=== PATIENT | female | born 1970 | race Caucasian/White ===

== ENCOUNTER 2021-09-14 07:24 | Emergency (ER) | payer BC ==
[2021-09-14] MEDS ORDERED: LIDOCAINE 1% W/EPI 1:100,000 MDV 50 ML VIAL ONE (08:12)
[2021-09-14] MEDS ORDERED: DOXYCYCLINE 100 MG CAP PO ONE (08:45)
[2021-09-14] MEDS ORDERED: MUPIROCIN 2% OINT 22GM TUBE TOP ONE (08:45)
[2021-09-14] MEDS ORDERED: HYDROCODONE/APAP 10/325 TAB ONE (08:45)
[2021-09-14] MEDS ORDERED: TETANUS & DIPHTHERIA TOX,ADULT 0.5 ML VIAL ONE (08:45)
--- NOTE | 2021-09-14 09:21 | RAD REPORT ---
EXAM DESCRIPTION: RAD - Ankle Left 3 View -09/14/2021 8:41 am CLINICAL HISTORY: Left ankle pain status post injury FINDINGS: No fracture or dislocation is seen.
--- NOTE | 2021-09-14 09:22 | RAD REPORT ---
EXAM DESCRIPTION: RAD - Foot Left 3 View - 09/14/2021 8:41 am CLINICAL HISTORY: Left Foot pain status post injury FINDINGS: No fracture or dislocation is seen.
--- NOTE | 2021-09-14 09:23 | RAD REPORT ---
EXAM DESCRIPTION: RAD - Knee Right 3 View - 09/14/2021 8:41 am CLINICAL HISTORY: Right knee pain status post injury FINDINGS: No fracture or dislocation is seen.
--- NOTE | 2021-09-14 09:24 | RAD REPORT ---
EXAM DESCRIPTION: RAD - Tib Fib Right - 09/14/2021 8:41 am CLINICAL HISTORY: Right leg pain FINDINGS: No fracture is seen
--- NOTE | 2021-09-14 10:18 | EDPHYS ---
Physician Documentation [facility] Name: Venita Alcala Age: 51 yrs Sex: Female : 1970 Arrival Date: 09/14/2021 Time: 07:28 Bed 24 Private MD: ED Physician Juice Monge HPI: 09/14 08:13 This 51 yrs old Female presents to ER via Ambulatory with complaints of Fall mariaelena Injury, Leg Injury, Foot Pain. 08:13 Details of fall: The patient fell from an upright position, while running. Onset: The mariaelena symptoms/episode began/occurred this morning. Associated injuries: The patient sustained left foot, right leg and left leg, decreased range of motion, hematoma, laceration. Severity of symptoms: At their worst the symptoms were mild, in the emergency department the symptoms are unchanged. The patient has not experienced similar symptoms in the past. Historical: - Allergies: 07:47 No Known Allergies; prince - Home Meds: 07:47 None [Active]; prince - PMHx: 07:47 None; prince - PSHx: 07:47 None; prince - Immunization history: Last tetanus immunization: unknown. - Social history:: Smoking status: Patient reports the use of cigarette tobacco products, smokes one-half pack cigarettes per day. ROS: 08:14 Constitutional: Negative for fever, chills, and weight loss, Eyes: Negative for injury, mariaelena pain, redness, and discharge, ENT: Negative for injury, pain, and discharge, Neck: Negative for injury, pain, and swelling, Cardiovascular: Negative for chest pain, palpitations, and edema, Respiratory: Negative for shortness of breath, cough, wheezing, and pleuritic chest pain, Abdomen/GI: Negative for abdominal pain, nausea, vomiting, diarrhea, and constipation, Back: Negative for injury and pain, : Negative for injury, bleeding, discharge, and swelling, Neuro: Negative for headache, weakness, numbness, tingling, and seizure, Psych: Negative for depression, anxiety, suicide ideation, homicidal ideation, and hallucinations, Allergy/Immunology: Negative for hives, rash, and allergies, Endocrine: Negative for neck swelling, polydipsia, polyuria, polyphagia, and marked weight changes, Hematologic/Lymphatic: Negative for swollen nodes, abnormal bleeding, and unusual bruising. 08:14 MS/extremity: Positive for laceration, pain, swelling, tenderness, of the left foot, right leg and left leg. Exam: 08:14 Constitutional: This is a well developed, well nourished patient who is awake, alert, mariaelena and in no acute distress. Head/Face: Normocephalic, atraumatic. Eyes: Pupils equal round and reactive to light, extra-ocular motions intact. Lids and lashes normal. Conjunctiva and sclera are non-icteric and not injected. Cornea within normal limits. Periorbital areas with no swelling, redness, or edema. ENT: Nares patent. No nasal discharge, no septal abnormalities noted. Tympanic membranes are normal and external auditory canals are clear. Oropharynx with no redness, swelling, or masses, exudates, or evidence of obstruction, uvula midline. Mucous membranes moist. Neck: Trachea midline, no thyromegaly or masses palpated, and no cervical lymphadenopathy. Supple, full range of motion without nuchal rigidity, or vertebral point tenderness. No Meningismus. Chest/axilla: Normal chest wall appearance and motion. Nontender with no deformity. No lesions are appreciated. Cardiovascular: Regular rate and rhythm with a normal S1 and S2. No gallops, murmurs, or rubs. Normal PMI, no JVD. No pulse deficits. Respiratory: Lungs have equal breath sounds bilaterally, clear to auscultation and percussion. No rales, rhonchi or wheezes noted. No increased work of breathing, no retractions or nasal flaring. Abdomen/GI: Soft, non-tender, with normal bowel sounds. No distension or tympany. No guarding or rebound. No evidence of tenderness throughout. Back: No spinal tenderness. No costovertebral tenderness. Full range of motion. Neuro: Awake and alert, GCS 15, oriented to person, place, time, and situation. Cranial nerves II-XII grossly intact. Motor strength 5/5 in all extremities. Sensory grossly intact. Cerebellar exam normal. Normal gait. Psych: Awake, alert, with orientation to person, place and time. Behavior, mood, and affect are within normal limits. 08:14 Skin: injury, avulsion(s), A moderate sized laceration(s), the wound is approximately 3.5 cm(s), with a depth of .5 cm(s), of the right leg. Vital Signs: 07:38 BP 136 / 81; Pulse 71; Resp 17; Temp 98.1(T); Pulse Ox 100% ; Weight 72.57 kg; Height 5 prince ft. 9 in. (175.26 cm); 07:38 Body Mass Index 23.63 (72.57 kg, 175.26 cm) prince Theresa Coma Score: 07:38 Eye Response: spontaneous(4). Verbal Response: oriented(5). Motor Response: obeys prince commands(6). Total: 15. Trauma Score (Adult): 07:38 Eye Response: spontaneous(1); Verbal Response: oriented(1); Motor Response: obeys prince commands(2); Systolic BP: > 89 mm Hg(4); Respiratory Rate: 10 to 29 per min(4); Theresa Score: 15; Trauma Score: 12 Laceration: 08:14 Wound Repair of 3.5cm ( 1.4in ) subcutaneous laceration to lateral aspect of right mariaelena calf. Irregularly shaped.. Distal neuro/vascular/tendon intact. Anesthesia: Local anesthetic administered with 8 mls of 1% lidocaine w/ Epi. Wound prep: Moderate cleansing by me. Skin closed with 3 4-0 Prolene using interrupted sutures and sterile technique. Dressed with Neosporin. Patient tolerated well. MDM: 07:38 Patient medically screened. [facility] 08:17 Differential diagnosis: closed fracture, abrasion, tendonitis. Differential diagnosis: mariaelena contusion, laceration. Data reviewed: vital signs, nurses notes, radiologic studies, plain films. Data interpreted: residential monitor: not applicable for this patient encounter. rate is 71 beats/min, rhythm is regular, Pulse oximetry: on room air is 100 %. Test interpretation: by ED physician or midlevel provider: plain radiologic studies. Counseling: I had a detailed discussion with the patient and/or guardian regarding: the historical points, exam findings, and any diagnostic results supporting the discharge/admit diagnosis, lab results, radiology results. 09/14 08:13 Order name: Knee Right 3 View XRAY [facility] 09/14 08:13 Order name: Ankle Left 3 View XRAY [facility] 09/14 08:13 Order name: Foot Left 3 View XRAY [facility] 09/14 08:13 Order name: Tib Fib Right XRAY [facility] 09/14 08:13 Order name: Dressing - Wound [facility] 09/14 08:13 Order name: Gloves, Sterile [facility] 09/14 08:13 Order name: Prolene, Sutures [facility] 09/14 08:13 Order name: Setup Suture Tray [facility] Administered Medications: 08:42 Drug: Tetanus Toxoid,Adsorbed 0.5 ml {Clinical Study Manager: [email or web address]. Exp: 06/14/2023. Lot prince #: [id number]. } Route: IM; Site: right deltoid; 08:43 Follow up: Response: No adverse reaction prince 08:43 Drug: [place] (HYDROcodone-acetaminophen) 10 mg-325 mg 1 tabs Route: PO; prince 08:43 Follow up: Response: No adverse reaction prince 08:43 Drug: Doxycycline 200 mg Route: PO; prince 08:43 Follow up: Response: No adverse reaction prince Disposition Summary: 09/14/21 10:18 Discharge Ordered Location: Home mariaelena Problem: new mariaelena Symptoms: have improved mariaelena Condition: Stable mariaelena Diagnosis - Fall on same level, unspecified mariaelena - Laceration without foreign body, right lower leg mariaelena - Laceration without foreign body, left foot - 2nd toe mariaelena Followup: mariaelena - With: Private Physician - When: Tomorrow - Reason: Recheck today's complaints, Continuance of care, Re-evaluation by your physician Followup: mariaelena - With: Destin Mercado MD - When: 1 - 2 days - Reason: Recheck today's complaints, Re-evaluation by your physician Discharge Instructions: - Discharge Summary Sheet mariaelena - Laceration Care, Adult mariaelena - Deep Skin Avulsion mariaelena - Laceration Care, Adult, [id number] Forms: - Medication Reconciliation Form [facility] - Thank You Letter mariaelena - Antibiotic Education mariaelena - Prescription Opioid Use [facility] Prescriptions: - Doxycycline Hyclate 100 mg Oral Tablet - take 1 tablet by ORAL route every 12 hours; 20 tablet; Refills: 0, Product mariaelena Selection Permitted - Centany 2 % Topical ointment - apply 1 application by TOPICAL route 3 times per day; 45 gram; Refills: 0, [facility] Product Selection Permitted - Tylenol-Codeine #3 300 mg-30 mg Oral - take 2 tablet by ORAL route every 6 hours; 20 tablet; Refills: 0, Product mariaelena Selection Permitted Signatures: Dispatcher [employer] Juice Owens MD MD cha Au-Stager, Heather, RN RN prince
--- NOTE | 2021-09-14 10:18 | ER ---
Nurse's Notes [facility] [place] Name: Venita Alcala Age: 51 yrs Sex: Female : 1970 Arrival Date: 09/14/2021 Time: 07:28 Bed 24 Private MD: Diagnosis: Fall on same level, unspecified;Laceration without foreign body, right lower leg;Laceration without foreign body, left foot-2nd toe Presentation: 09/14 07:38 Chief complaint: Patient states: pt presented to ed reporting [place] trip and fell. pt injured right leg with laceration to lower right leg, abrasion to left forth toe and ankle. pt denies head injury and is not on blood thinners. Care prior to arrival: None. Mechanism of Injury: Fall. Trauma event details: Injury occurred: September 14, 2021. 07:38 Acuity: FELY 3 prince 07:38 Method Of Arrival: Ambulatory 07:48 Coronavirus screen: Vaccine status: Patient reports being unvaccinated. Ebola Screen: prince Patient denies travel to an Ebola-affected area in the 21 days before illness onset. Initial Sepsis Screen: Does the patient meet any 2 criteria?. Initial Sepsis Screen: Does the patient meet any 2 criteria? No. Patient's initial sepsis screen is negative. Risk Assessment: Do you want to hurt yourself or someone else? Patient reports no desire to harm self or others. Onset of symptoms was September 14, 2021. 07:49 Initial Sepsis Screen: Does the patient have a suspected source of infection? No. prince Patient's initial sepsis screen is negative. Trauma Activation: Consult Physician: ED Physician; Name: ; Notified At: ; Arrived At: Physician: General Surgeon; Name: ; Notified At: ; Arrived At: Physician: Radiology; Name: ; Notified At: ; Arrived At: Physician: Respiratory; Name: ; Notified At: ; Arrived At: Physician: Lab; Name: ; Notified At: ; Arrived At: Historical: - Allergies: 07:47 No Known Allergies; prince - Home Meds: 07:47 None [Active]; prince - PMHx: 07:47 None; prince - PSHx: 07:47 None; prince - Immunization history: Last tetanus immunization: unknown. - Social history:: Smoking status: Patient reports the use of cigarette tobacco products, smokes one-half pack cigarettes per day. Screenin:38 Abuse screen: Denies threats or abuse. Denies injuries from another. Tuberculosis prince screening: No symptoms or risk factors identified. 07:47 Nutritional screening: No deficits noted. Fall Risk None identified. prince Primary Survey: 07:38 NO uncontrolled hemorrhage observed. A: The client is awake and alert. The airway is prince patent. The client is alert. Breathing/Chest: Spontaneous respiratory effort, equal unlabored respirations, breath sounds clear bilaterally, regular pattern, symmetrical chest rise and fall. Respiratory effort: spontaneous. Circulation: No external hemorrhage present. Regular and strong central pulse, skin warm/dry/normal color. Disability Client is alert. Exposure/Environment: A warming method has been applied: A warm blanket has been provided to the patient. 07:48 Reassessment Alertness and Airway: Awake and alert. The airway is patent. Airway Patent prince Breathing: Spontaneous respiratory effort, equal unlabored respirations, breath sounds clear bilaterally, regular pattern with symmetrical chest rise and fall. Respiratory effort Spontaneous Unlabored Circulation: No external hemorrhage noted. Regular and strong central pulse, skin warm/dry/normal color. Disability: Alert. Assessment: 07:38 General: Appears in no apparent distress. Behavior is calm, cooperative. Pain: prince Complains of pain in right leg and left leg. 07:46 Derm: Wound noted right leg and left leg Wound is laceration to lower right leg and prince abrasion to left forth toe and ankle Reports pain that is 7 out of 10 on a pain scale. Vital Signs: 07:38 BP 136 / 81; Pulse 71; Resp 17; Temp 98.1(T); Pulse Ox 100% ; Weight 72.57 kg; Height 5 prince ft. 9 in. (175.26 cm); 07:38 Body Mass Index 23.63 (72.57 kg, 175.26 cm) prince Laquita Coma Score: 07:38 Eye Response: spontaneous(4). Verbal Response: oriented(5). Motor Response: obeys prince commands(6). Total: 15. Trauma Score (Adult): 07:38 Eye Response: spontaneous(1); Verbal Response: oriented(1); Motor Response: obeys prince commands(2); Systolic BP: > 89 mm Hg(4); Respiratory Rate: 10 to 29 per min(4); [place] Score: 15; Trauma Score: 12 ED Course: 07:28 Patient arrived in ED. am2 07:31 Elena Valentin, RN is Primary Nurse. prince 07:38 Juice Monge MD is Attending Physician. mariaelena 07:38 Patient has correct armband on for positive identification. Bed in low position. prince 07:38 Patient maintains SpO2 saturation greater than 95% on room air. prince 07:40 Triage completed. prince 07:47 No provider procedures requiring assistance completed. prince 07:48 Arm band placed on. prince 07:49 Thermoregulation: warm blanket given to patient. prince 08:43 Knee Right 3 View XRAY In Process Unspecified. EDMS 08:43 Ankle Left 3 View XRAY In Process Unspecified. EDMS 08:43 Foot Left 3 View XRAY In Process Unspecified. EDMS 08:43 Tib Fib Right XRAY In Process Unspecified. EDMS 10:18 Destin Mercado MD is Referral Physician. mariaelena 10:55 Assist provider with laceration repair Set up tray. Dressed with Patient tolerated well.prince 10:56 Patient did not have IV access during this emergency room visit. prince Administered Medications: 08:42 Drug: Tetanus Toxoid,Adsorbed 0.5 ml {[employer] Dealer: [employer]. Exp: 06/14/2023. Lot prince #: [id number]. } Route: IM; Site: right deltoid; 08:43 Follow up: Response: No adverse reaction prince 08:43 Drug: [place] (HYDROcodone-acetaminophen) 10 mg-325 mg 1 tabs Route: PO; prince 08:43 Follow up: Response: No adverse reaction prince 08:43 Drug: Doxycycline 200 mg Route: PO; prince 08:43 Follow up: Response: No adverse reaction prince Medication: 07:47 VIS not applicable for this client. prince Intake: 07:38 PO: 0ml; Total: 0ml. prince Outcome: 10:18 Discharge ordered by . mariaelena 10:55 Discharged to home ambulatory. prince 10:55 Condition: good 10:55 Discharge instructions given to patient, Prescriptions given X 3. 10:56 Patient left the ED. prince Signatures: Dispatcher [employer] Juice Owens MD MD cha Moreno, Amanda am2 Elena Valentin RN RN prince
[2021-09-14 11:20] VITALS: BP 136/81; TEMP 98.1; O2SAT 100
== END 2021-09-14 10:56 | disposition home or self-care (01) ==
LOC: ER 07:24
PROC: 0JQP0ZZ Repair Left Lower Leg Subcutaneous Tissue and Fascia, Open Approach (ICD-10-PCS; principal; 2021-09-14)
DX: S81.811A Laceration without foreign body, right lower leg, initial encounter (principal); S91.115A Laceration without foreign body of left lesser toe(s) without damage to nail, initial encounter; Z23 Encounter for immunization; F17.210 Nicotine dependence, cigarettes, uncomplicated
CPT/HCPCS: 90471; 90714; 99284